=== PATIENT | female | born 1955 | race Caucasian/White ===

== ENCOUNTER 2020-07-24 10:00 | Inpatient (IN) ==
[2020-07-24 11:21] LABS: Basophils % 0.2 % (0.0-0.8); Eosinophils # 0.1 10*3/uL (0.0-0.87); Eosinophils % 1.3 % (0.00-10.9); Hematocrit 27.2 VOL% (35.7-47.0); Hemoglobin 8.6 GM/DL (12.0-16.0); Immature Granulocytes % 0.3 %; Immature Granulocytes Absolute 0.03 #; Lymphocytes # 2.8 10*3/uL (1.4-4.0); Lymphocytes % 31.9 % (21.3-54.2); Mean Corpuscular HGB Conc 31.6 GM/DL (32-36); Mean Corpuscular Volume 86.1 FL (87-102); Mean Platelet Volume 11.6 FL (9.6-12.0); Monocytes % 6.5 % (1.7-12.7); Neutrophils % 59.8 % (38.7-73.9); Platelet Count 171 T/CUMM (130-400); Red Blood Count 3.16 MC/CUMM (3.8-5.5); Red Cell Distribution Width 13.4 % (9.3-17.3); White Blood Count 8.8 T/CUMM (4-12)
[2020-07-24 11:41] LABS: Alanine Aminotransferase 30 U/L (13-56); Albumin 3.8 G/DL (3.4-5.0); Alkaline Phosphatase 63 U/L (45-117); Aspartate Amino Transferase 18 U/L (0-37); Bilirubin,Total < 0.39 MG/DL (0.2-1.0); Blood Urea Nitrogen 93 MG/DL (7-18); Calcium 8.7 MG/DL (8.5-10.1); Carbon Dioxide 20 MMOL/L (21-32); Estimated Glom Filtration Rate 7 ML/MIN; Glucose 232 MG/DL (74-106); Potassium 4.8 MMOL/L (3.5-5.1); Sodium 136 MMOL/L (136-145); Total Protein 7.4 G/DL (6.4-8.2)
[2020-07-24] MEDS ORDERED: ACETAMINOPHEN 325 MG TABLET PO PRN (11:51)
[2020-07-24] MEDS ORDERED: GLUCAGON 1 MG VIAL IM PRN (11:51)
[2020-07-24] MEDS ORDERED: ONDANSETRON 4 MG/2 ML VIAL IV PRN (11:51)
[2020-07-24] MEDS ORDERED: DEXTROSE 50% 25 GM/50 ML VIAL IV PRN (11:51)
[2020-07-24] MEDS ORDERED: VANCOMYCIN INJ 750 MG in SODIUM CHLORIDE 0.9% 250 ML IV ONE (12:00)
[2020-07-24 12:22] LABS: Alanine Aminotransferase 30 U/L (13-56); Albumin 3.8 G/DL (3.4-5.0); Alkaline Phosphatase 65 U/L (45-117); Aspartate Amino Transferase 20 U/L (0-37); Bilirubin,Indirect 0.3 MG/DL (0.0-1.0); Bilirubin,Total < 0.39 MG/DL (0.2-1.0)
[2020-07-24] MEDS ORDERED: LIDOCAINE 1%/EPI INJ 20 ML VIAL ONE (12:56)
[2020-07-24] MEDS ORDERED: HEPARIN 5,000 UNIT/1 ML VIAL ONE (12:56)
[2020-07-24] MEDS ORDERED: BUPIVACAINE MPF 0.25% 30 ML VIAL ONE (12:56)
[2020-07-24] MEDS ORDERED: SODIUM CHLORIDE 0.9% 250 ML IV SCH (13:30)
[2020-07-24] MEDS ORDERED: MIDAZOLAM 2 MG/2 ML VIAL ONE (13:31)
[2020-07-24] MEDS ORDERED: KETAMINE 500 MG/10 ML VIAL ONE (13:31)
[2020-07-24] MEDS ORDERED: fentaNYL 100 MCG/2 ML VIAL ONE (13:31)
[2020-07-24] MEDS ORDERED: CALCIUM CARBONATE CHEW 500 MG TABLET PO PRN (15:52)
[2020-07-24] MEDS ORDERED: EPOETIN ALFA-EPBX 2,000 UNIT/ML VIAL IV PRN (16:53)
[2020-07-24 17:16] LABS: Hepatitis B Core IgM Quant < 0.05 Index; Hepatitis B Surface Ag Quant < 0.10 Index; Hepatitis B Surface Ag Result Non-Reactive (NonReactive); Hepatitis C Virus Ab Quant 0.03 Index; Hepatitis C Virus Ab Result Non-Reactive (NonReactive)
[2020-07-24] MEDS: INSULIN LISPRO 100 UNIT/ML SUBCUT SCH ×2 (18:03→21:20)
[2020-07-24] MEDS: CALCIUM (CARBONATE) 500 MG TABLET PO SCH (18:04)
[2020-07-24] MEDS: SODIUM BICARBONATE 650 MG TABLET PO SCH (21:20)
[2020-07-24] MEDS: OMEGA 3 ACID ETHYL ESTERS 1 GM CAPSULE PO SCH (21:20)
[2020-07-25 05:59] LABS: Basophils % 0.1 % (0.0-0.8); Eosinophils # 0.1 10*3/uL (0.0-0.87); Eosinophils % 1.4 % (0.00-10.9); Hemoglobin 8.3 GM/DL (12.0-16.0); Immature Granulocytes % 0.3 %; Immature Granulocytes Absolute 0.03 #; Lymphocytes # 3.1 10*3/uL (1.4-4.0); Lymphocytes % 35.1 % (21.3-54.2); Mean Corpuscular HGB Conc 31.9 GM/DL (32-36); Mean Platelet Volume 11.8 FL (9.6-12.0); Monocytes % 8.1 % (1.7-12.7); Platelet Count 162 T/CUMM (130-400); Red Blood Count 2.99 MC/CUMM (3.8-5.5); Red Cell Distribution Width 13.2 % (9.3-17.3); White Blood Count 8.7 T/CUMM (4-12)
[2020-07-25 06:31] LABS: Potassium 5.1 MMOL/L (3.5-5.1); Risk Ratio 5.13; Thyroid Stimulating Hormone 0.067 uIU/ml (0.358-3.74); VLDL CHOLESTEROL 27.4 MG/DL
[2020-07-25] MEDS: NEBIVOLOL 10 MG TABLET PO SCH (08:22)
[2020-07-25] MEDS: OMEGA 3 ACID ETHYL ESTERS 1 GM CAPSULE PO SCH ×2 (08:22→21:12)
[2020-07-25] MEDS: ASPIRIN EC 81 MG TABLET PO SCH (08:22)
[2020-07-25] MEDS: SODIUM BICARBONATE 650 MG TABLET PO SCH ×2 (08:22→21:12)
[2020-07-25] MEDS: amLODIPine 10 MG TABLET PO SCH (08:23)
[2020-07-25] MEDS: ESCITALOPRAM 10 MG TABLET PO SCH (08:23)
[2020-07-25] MEDS: FENOFIBRATE 145 MG TABLET PO SCH (08:23)
[2020-07-25] MEDS: PANTOPRAZOLE 40 MG TABLET PO SCH (08:23)
[2020-07-25] MEDS: INSULIN LISPRO 100 UNIT/ML SUBCUT SCH ×4 (08:24→21:14)
[2020-07-25] MEDS: CALCIUM (CARBONATE) 500 MG TABLET PO SCH ×3 (11:15→16:56)
[2020-07-25] MEDS ORDERED: HEPARIN 10,000 UNIT/10 ML VIAL IV SCH (11:30)
[2020-07-25 13:16] LABS: Bilirubin,Urine Negative (Negative); Blood, Urine Negative (Negative); Glucose,Urine (UA) >=500 mg/dL (Negative); Ketones,Urine Negative (Negative); Mucus,Urine Occasional /LPF (Occasional); Nitrite,Urine Negative (Negative); Protein,Urine 30 MG/DL; RBC,Urine 2 /HPF (0-4); Squamous Epithelial Cell,Urine Occasional /HPF (0-10); Urine Appearance CLEAR (Clear); Urine Color Straw (Yellow); Urine Specific Gravity 1.007 (1.001-1.035); Urine Urobilinogen < 2.0 EU/DL (0.2-1.0)
[2020-07-26 05:22] LABS: Basophils % 0.3 % (0.0-0.8); Eosinophils # 0.2 10*3/uL (0.0-0.87); Eosinophils % 2.2 % (0.00-10.9); Hemoglobin 7.8 GM/DL (12.0-16.0); Immature Granulocytes % 0.3 %; Immature Granulocytes Absolute 0.02 #; Lymphocytes # 3.7 10*3/uL (1.4-4.0); Lymphocytes % 51.9 % (21.3-54.2); Mean Corpuscular HGB Conc 32.5 GM/DL (32-36); Mean Platelet Volume 11.9 FL (9.6-12.0); Neutrophils % 36.3 % (38.7-73.9); Platelet Count 135 T/CUMM (130-400); Red Blood Count 2.79 MC/CUMM (3.8-5.5); Red Cell Distribution Width 13.1 % (9.3-17.3); White Blood Count 7.2 T/CUMM (4-12)
[2020-07-26 05:47] LABS: Calcium 8.8 MG/DL (8.5-10.1); Osmolality,Calculated 296.5 MOS/KG (273-304); Potassium 4.8 MMOL/L (3.5-5.1)
[2020-07-26 05:48] LABS: Eosinophils 4 % (0-10); Lymphocytes 54 % (20-55); Platelet Estimate Normal; Segmented Neutrophils 33 % (50-85); Total Cells Counted 100
[2020-07-26 05:49] LABS: Hypochromasia 2+; Microcytosis 1+
[2020-07-26] MEDS: OMEGA 3 ACID ETHYL ESTERS 1 GM CAPSULE PO SCH ×2 (09:33→20:59)
[2020-07-26] MEDS: ESCITALOPRAM 10 MG TABLET PO SCH (09:34)
[2020-07-26] MEDS: SODIUM BICARBONATE 650 MG TABLET PO SCH ×2 (09:34→20:59)
[2020-07-26] MEDS: ASPIRIN EC 81 MG TABLET PO SCH (09:34)
[2020-07-26] MEDS: CALCIUM (CARBONATE) 500 MG TABLET PO SCH ×3 (09:34→17:32)
[2020-07-26] MEDS: amLODIPine 10 MG TABLET PO SCH (09:34)
[2020-07-26] MEDS: INSULIN LISPRO 100 UNIT/ML SUBCUT SCH ×4 (09:35→21:00)
[2020-07-26] MEDS: NEBIVOLOL 10 MG TABLET PO SCH (09:35)
[2020-07-26] MEDS: FENOFIBRATE 145 MG TABLET PO SCH (09:35)
[2020-07-26] MEDS: PANTOPRAZOLE 40 MG TABLET PO SCH (09:35)
[2020-07-27 04:34] LABS: Basophils % 0.1 % (0.0-0.8); Eosinophils # 0.2 10*3/uL (0.0-0.87); Eosinophils % 2.4 % (0.00-10.9); Hematocrit 24.2 VOL% (35.7-47.0); Hemoglobin 7.9 GM/DL (12.0-16.0); Immature Granulocytes % 0.3 %; Immature Granulocytes Absolute 0.03 #; Lymphocytes # 3.2 10*3/uL (1.4-4.0); Lymphocytes % 37.2 % (21.3-54.2); Mean Corpuscular HGB Conc 32.6 GM/DL (32-36); Mean Corpuscular Volume 84.9 FL (87-102); Mean Platelet Volume 11.9 FL (9.6-12.0); Platelet Count 125 T/CUMM (130-400); Red Blood Count 2.85 MC/CUMM (3.8-5.5); White Blood Count 8.6 T/CUMM (4-12)
[2020-07-27 04:51] LABS: Calcium 8.1 MG/DL (8.5-10.1); Osmolality,Calculated 286.4 MOS/KG (273-304); Potassium 4.1 MMOL/L (3.5-5.1)
[2020-07-27] MEDS: FENOFIBRATE 145 MG TABLET PO SCH (10:07)
[2020-07-27] MEDS: SODIUM BICARBONATE 650 MG TABLET PO SCH ×2 (10:07→20:21)
[2020-07-27] MEDS: INSULIN LISPRO 100 UNIT/ML SUBCUT SCH ×4 (10:07→20:20)
[2020-07-27] MEDS: PANTOPRAZOLE 40 MG TABLET PO SCH (10:07)
[2020-07-27] MEDS: NEBIVOLOL 10 MG TABLET PO SCH (10:07)
[2020-07-27] MEDS: ESCITALOPRAM 10 MG TABLET PO SCH (10:07)
[2020-07-27] MEDS: ASPIRIN EC 81 MG TABLET PO SCH (10:07)
[2020-07-27] MEDS: OMEGA 3 ACID ETHYL ESTERS 1 GM CAPSULE PO SCH ×2 (10:07→20:21)
[2020-07-27] MEDS: CALCIUM (CARBONATE) 500 MG TABLET PO SCH ×3 (10:07→16:41)
[2020-07-27] MEDS: amLODIPine 10 MG TABLET PO SCH (11:36)
[2020-07-28 06:05] LABS: Basophils % 0.3 % (0.0-0.8); Eosinophils # 0.2 10*3/uL (0.0-0.87); Eosinophils % 3.1 % (0.00-10.9); Hematocrit 23.9 VOL% (35.7-47.0); Hemoglobin 7.7 GM/DL (12.0-16.0); Immature Granulocytes % 0.5 %; Immature Granulocytes Absolute 0.03 #; Lymphocytes % 47.3 % (21.3-54.2); Mean Corpuscular HGB Conc 32.2 GM/DL (32-36); Mean Corpuscular Volume 85.4 FL (87-102); Mean Platelet Volume 12.1 FL (9.6-12.0); Monocytes % 10.6 % (1.7-12.7); Neutrophils % 38.2 % (38.7-73.9); Platelet Count 126 T/CUMM (130-400); White Blood Count 6.4 T/CUMM (4-12)
[2020-07-28 06:25] LABS: Osmolality,Calculated 284.5 MOS/KG (273-304); Potassium 3.5 MMOL/L (3.5-5.1)
[2020-07-28 07:15] LABS: Hypochromasia Slight; Lymphocytes 43 % (20-55); Microcytosis Slight; Ovalocytes Few; Platelet Estimate Adequate; Reactive Lymphocytes Few; Segmented Neutrophils 51 % (50-85); Total Cells Counted 100
[2020-07-28] MEDS ORDERED: SODIUM CHLORIDE 0.9% 1,000 ML IV PRN (08:28)
[2020-07-28] MEDS: SODIUM BICARBONATE 650 MG TABLET PO SCH ×2 (09:30→20:13)
[2020-07-28] MEDS: NEBIVOLOL 10 MG TABLET PO SCH (09:30)
[2020-07-28] MEDS: PANTOPRAZOLE 40 MG TABLET PO SCH (09:30)
[2020-07-28] MEDS: ASPIRIN EC 81 MG TABLET PO SCH (09:30)
[2020-07-28] MEDS: INSULIN LISPRO 100 UNIT/ML SUBCUT SCH ×4 (09:30→20:13)
[2020-07-28] MEDS: ESCITALOPRAM 10 MG TABLET PO SCH (09:30)
[2020-07-28] MEDS: OMEGA 3 ACID ETHYL ESTERS 1 GM CAPSULE PO SCH ×2 (09:30→20:13)
[2020-07-28] MEDS: amLODIPine 10 MG TABLET PO SCH (09:30)
[2020-07-28] MEDS: CALCIUM (CARBONATE) 500 MG TABLET PO SCH ×3 (09:30→17:09)
[2020-07-28] MEDS: FENOFIBRATE 145 MG TABLET PO SCH (09:30)
[2020-07-29 05:28] LABS: Basophils % 0.1 % (0.0-0.8); Eosinophils # 0.2 10*3/uL (0.0-0.87); Eosinophils % 2.5 % (0.00-10.9); Hematocrit 23.7 VOL% (35.7-47.0); Hemoglobin 7.4 GM/DL (12.0-16.0); Immature Granulocytes % 0.4 %; Immature Granulocytes Absolute 0.03 #; Lymphocytes # 3.7 10*3/uL (1.4-4.0); Lymphocytes % 51.7 % (21.3-54.2); Mean Corpuscular HGB Conc 31.2 GM/DL (32-36); Mean Corpuscular Volume 88.1 FL (87-102); Mean Platelet Volume 11.9 FL (9.6-12.0); Monocytes % 8.2 % (1.7-12.7); Neutrophils % 37.1 % (38.7-73.9); Platelet Count 140 T/CUMM (130-400); Red Blood Count 2.69 MC/CUMM (3.8-5.5); Red Cell Distribution Width 13.1 % (9.3-17.3); White Blood Count 7.2 T/CUMM (4-12)
[2020-07-29 05:50] LABS: Calcium 8.4 MG/DL (8.5-10.1); Osmolality,Calculated 293.4 MOS/KG (273-304); Potassium 4.1 MMOL/L (3.5-5.1)
[2020-07-29 05:58] LABS: Eosinophils 1 % (0-10); Hypochromasia 1+; Lymphocytes 49 % (20-55); Microcytosis 1+; Platelet Estimate Adequate; Segmented Neutrophils 45 % (50-85); Total Cells Counted 100
[2020-07-29 05:59] LABS: Atypical Lymphocytes Few
[2020-07-29] MEDS: INSULIN LISPRO 100 UNIT/ML SUBCUT SCH ×4 (08:29→21:21)
[2020-07-29] MEDS: ASPIRIN EC 81 MG TABLET PO SCH (08:29)
[2020-07-29] MEDS: ESCITALOPRAM 10 MG TABLET PO SCH (08:30)
[2020-07-29] MEDS: SODIUM BICARBONATE 650 MG TABLET PO SCH (08:30)
[2020-07-29] MEDS: FENOFIBRATE 145 MG TABLET PO SCH (08:30)
[2020-07-29] MEDS: OMEGA 3 ACID ETHYL ESTERS 1 GM CAPSULE PO SCH ×2 (08:30→21:20)
[2020-07-29] MEDS: NEBIVOLOL 10 MG TABLET PO SCH (08:30)
[2020-07-29] MEDS: amLODIPine 10 MG TABLET PO SCH (08:30)
[2020-07-29] MEDS: CALCIUM (CARBONATE) 500 MG TABLET PO SCH ×3 (08:31→17:00)
[2020-07-29] MEDS: PANTOPRAZOLE 40 MG TABLET PO SCH (08:31)
[2020-07-29] MEDS ORDERED: SODIUM CHLORIDE 0.9% 1,000 ML IV PRN (11:07)
[2020-07-29] MEDS: INSULIN ASPART PROTAMINE/ASPART 70/30 100 UNIT/ML SUBCUT SCH (14:12)
[2020-07-29 19:29] LABS: Hematocrit 32.7 VOL% (35.7-47.0)
[2020-07-29 19:40] LABS: Hemoglobin 10.8 GM/DL (12.0-16.0)
[2020-07-30 05:53] LABS: Basophils % 0.1 % (0.0-0.8); Eosinophils # 0.2 10*3/uL (0.0-0.87); Eosinophils % 2.2 % (0.00-10.9); Hematocrit 33.2 VOL% (35.7-47.0); Hemoglobin 11.2 GM/DL (12.0-16.0); Immature Granulocytes % 0.4 %; Immature Granulocytes Absolute 0.03 #; Lymphocytes # 3.2 10*3/uL (1.4-4.0); Lymphocytes % 37.8 % (21.3-54.2); Mean Corpuscular HGB Conc 33.7 GM/DL (32-36); Mean Corpuscular Volume 86.2 FL (87-102); Monocytes % 8.7 % (1.7-12.7); Neutrophils % 50.8 % (38.7-73.9); Platelet Count 132 T/CUMM (130-400); Red Blood Count 3.85 MC/CUMM (3.8-5.5); Red Cell Distribution Width 13.2 % (9.3-17.3); White Blood Count 8.6 T/CUMM (4-12)
[2020-07-30 06:03] LABS: Calcium 8.7 MG/DL (8.5-10.1); Osmolality,Calculated 296.7 MOS/KG (273-304); Potassium 4.4 MMOL/L (3.5-5.1)
[2020-07-30 07:51] VITALS: BP 154/54
[2020-07-30] MEDS: INSULIN LISPRO 100 UNIT/ML SUBCUT SCH ×2 (08:27→13:30)
[2020-07-30] MEDS: PANTOPRAZOLE 40 MG TABLET PO SCH (09:49)
[2020-07-30] MEDS: CALCIUM (CARBONATE) 500 MG TABLET PO SCH ×2 (09:49→13:30)
[2020-07-30] MEDS: ASPIRIN EC 81 MG TABLET PO SCH (09:49)
[2020-07-30] MEDS: OMEGA 3 ACID ETHYL ESTERS 1 GM CAPSULE PO SCH (09:49)
[2020-07-30] MEDS: FENOFIBRATE 145 MG TABLET PO SCH (09:50)
[2020-07-30] MEDS: ESCITALOPRAM 10 MG TABLET PO SCH (13:29)
[2020-07-30] MEDS: NEBIVOLOL 10 MG TABLET PO SCH (13:29)
[2020-07-30] MEDS: amLODIPine 10 MG TABLET PO SCH (13:30)
[2020-07-30] MEDS: INSULIN ASPART PROTAMINE/ASPART 70/30 100 UNIT/ML SUBCUT SCH (13:30)
== END 2020-07-30 13:47 | disposition home or self-care (01) | DRG 673 ==
LOC: N.ED 10:00 → N.EDINP 11:51 → SUATTDRO 11:51 → N.EDINP 13:11 → N.5E 15:10
PROVIDERS: ADMIT Internal Medicine; ATTEND Internal Medicine

== ENCOUNTER 2020-12-24 07:24 | Inpatient (IN) ==
[2020-12-19 11:46] LABS: Basophils % 0.4 % (0.0-0.8); Eosinophils # 0.2 10*3/uL (0.0-0.87); Eosinophils % 4.5 % (0.00-10.9); Hematocrit 34.2 VOL% (35.7-47.0); Hemoglobin 10.8 GM/DL (12.0-16.0); Immature Granulocytes % 0.2 %; Immature Granulocytes Absolute 0.01 #; Lymphocytes % 39.7 % (21.3-54.2); Mean Corpuscular HGB Conc 31.6 GM/DL (32-36); Mean Corpuscular Volume 101.2 FL (87-102); Mean Platelet Volume 12.3 FL (9.6-12.0); Monocytes % 7.4 % (1.7-12.7); Neutrophils % 47.8 % (38.7-73.9); Platelet Count 162 T/CUMM (130-400); Red Blood Count 3.38 MC/CUMM (3.8-5.5); White Blood Count 5.1 T/CUMM (4-12)
[2020-12-19 12:04] LABS: Albumin 3.8 G/DL (3.4-5.0); Bilirubin,Total 0.7 MG/DL (0.20-1.00); Calcium 9.3 MG/DL (8.5-10.1); Osmolality,Calculated 293.7 MOS/KG (273-304); Potassium 3.9 MMOL/L (3.5-5.1); Total Protein 6.8 G/DL (6.4-8.2)
[~2020-12-24 07:24] MED LIST: ACETAMINOPHEN 500 MG TABLET PO ONE; FAMOTIDINE 20 MG TABLET PO ONE; VANCOMYCIN INJ 500 MG in SODIUM CHLORIDE 0.9% 100 ML IV ONE
[2020-12-24] MEDS ORDERED: PHENYLEPHRINE DRIP 20 MG/250 ML PREMIX IV ONE ×2 (08:43→10:22)
[2020-12-24] MEDS ORDERED: HEPARIN/NACL 0.9% 2 UNITS/ML 1,000 UNIT/500 ML BAG IV ONE ×2 (08:43→10:22)
[2020-12-24] MEDS ORDERED: LACTATED RINGERS 1,000 ML IV ONE (08:43)
[2020-12-24] MEDS ORDERED: NITROGLYCERIN DRIP 50 MG/250 ML BOTTLE IV ONE ×2 (08:43→10:22)
[2020-12-24] MEDS ORDERED: LACTATED RINGERS 1,000 ML IV SCH (09:30)
[2020-12-24 09:52] LABS: Hematocrit 33.6 VOL% (35.7-47.0); Hemoglobin 10.8 GM/DL (12.0-16.0)
[2020-12-24] MEDS ORDERED: ROPIVACAINE 0.5% 30 ML VIAL ONE (09:58)
[2020-12-24] MEDS ORDERED: LIDOCAINE 1% 5 ML VIAL ONE (09:58)
[2020-12-24] MEDS ORDERED: SODIUM CHLORIDE 0.9% 250 ML IV SCH (10:00)
[2020-12-24] MEDS ORDERED: HEPARIN 5,000 UNIT/1 ML VIAL ONE (10:05)
[2020-12-24] MEDS ORDERED: fentaNYL 100 MCG/2 ML VIAL ONE (10:14)
[2020-12-24] MEDS ORDERED: propofoL 200 MG/20 ML VIAL IV ONE (10:18)
[2020-12-24] MEDS ORDERED: LIDOCAINE 2% 5 ML VIAL ONE (10:18)
[2020-12-24] MEDS ORDERED: ROCURONIUM 50 MG/5 ML VIAL IV ONE (10:18)
[2020-12-24] MEDS ORDERED: SEVOFLURANE 1 UNIT/15 MINUTE INH ONE ×6 (10:18→12:35)
[2020-12-24] MEDS ORDERED: ETOMIDATE 40 MG/20 ML VIAL IV ONE (10:18)
[2020-12-24] MEDS ORDERED: DEXAMETHASONE 4 MG/1 ML VIAL ONE (10:18)
[2020-12-24] MEDS ORDERED: ONDANSETRON 4 MG/2 ML VIAL ONE (10:18)
[2020-12-24] MEDS ORDERED: PHENYLEPHRINE 1 MG/10 ML SYRINGE IV ONE (10:26)
[2020-12-24] MEDS ORDERED: SODIUM CHLORIDE 0.9% 750 ML IV ONE (11:17)
[2020-12-24] MEDS ORDERED: PROTAMINE SULFATE 50 MG/5 ML VIAL IV ONE (11:59)
[2020-12-24] MEDS ORDERED: GLYCOPYRROLATE 0.4 MG/2 ML VIAL ONE (12:02)
[2020-12-24] MEDS ORDERED: NEOSTIGMINE 10 MG/10 ML VIAL ONE (12:02)
[2020-12-24] MEDS ORDERED: PROMETHAZINE 25 MG/1 ML VIAL IM PRN (12:22)
[2020-12-24] MEDS ORDERED: ONDANSETRON 4 MG/2 ML VIAL IV PRN ×2 (12:22→13:30)
[2020-12-24] MEDS ORDERED: DEXTROSE 50% 25 GM/50 ML VIAL IV PRN (12:22)
[2020-12-24] MEDS ORDERED: GLUCAGON 1 MG VIAL IM PRN (12:22)
[2020-12-24] MEDS ORDERED: oxyCODONE/ACETAMINOPHEN 5-325 MG TABLET PO PRN ×2 (12:22)
[2020-12-24] MEDS ORDERED: HYDROmorphone 2 MG/1 ML VIAL IV PRN ×2 (12:22)
[2020-12-24] MEDS ORDERED: NALOXONE 0.4 MG/ML VIAL IV PRN (12:22)
[2020-12-24] MEDS ORDERED: PHENYLEPHRINE DRIP 40 MG/250 ML PREMIX IV SCH (12:30)
[2020-12-24] MEDS ORDERED: NITROPRUSSIDE 100 MG in DEXTROSE 5% 250 ML IV SCH (12:30)
[2020-12-24] MEDS ORDERED: PROMETHAZINE INJ 12.5 MG in SODIUM CHLORIDE 0.9% 50 ML IV PRN (13:58)
[2020-12-24] MEDS: LACTATED RINGERS 1,000 ML IV SCH (14:29)
[2020-12-24] MEDS: INSULIN REGULAR 100 UNIT/ML SUBCUT SCH ×2 (16:24→21:28)
[2020-12-24] MEDS ORDERED: NON-FORMULARY MEDICATION (Aspirin 81 mg Tablet) PO SCH (21:00)
[2020-12-24] MEDS: FAMOTIDINE 20 MG TABLET PO SCH (21:27)
[2020-12-24] MEDS: FERROUS SULFATE 325 MG TABLET PO SCH (21:28)
[2020-12-25] MEDS: LACTATED RINGERS 1,000 ML IV SCH (00:51)
[2020-12-25 06:08] VITALS: BP 147/48
[2020-12-25] MEDS: INSULIN REGULAR 100 UNIT/ML SUBCUT SCH ×4 (08:00→21:26)
[2020-12-25 08:49] LABS: Basophils % 0.4 % (0.0-0.8); Eosinophils % 0.4 % (0.00-10.9); Hematocrit 33.4 VOL% (35.7-47.0); Hemoglobin 10.3 GM/DL (12.0-16.0); Immature Granulocytes % 0.5 %; Immature Granulocytes Absolute 0.04 #; Lymphocytes % 23.6 % (21.3-54.2); Mean Corpuscular HGB Conc 30.8 GM/DL (32-36); Mean Corpuscular Volume 102.5 FL (87-102); Mean Platelet Volume 12.2 FL (9.6-12.0); Monocytes % 4.6 % (1.7-12.7); Neutrophils % 70.5 % (38.7-73.9); Platelet Count 193 T/CUMM (130-400); Red Blood Count 3.26 MC/CUMM (3.8-5.5); Red Cell Distribution Width 14.5 % (9.3-17.3); White Blood Count 8.6 T/CUMM (4-12)
[2020-12-25] MEDS: CLOPIDOGREL 75 MG TABLET PO SCH (09:22)
[2020-12-25] MEDS: ASPIRIN EC 81 MG TABLET PO SCH (09:22)
[2020-12-25] MEDS: FAMOTIDINE 20 MG TABLET PO SCH ×2 (09:22→21:25)
[2020-12-25] MEDS ORDERED: HEPARIN 10,000 UNIT/10 ML VIAL IV SCH (10:45)
[2020-12-25 11:58] LABS: Calcium 8.6 MG/DL (8.5-10.1); Osmolality,Calculated 297.7 MOS/KG (273-304); Potassium 4.2 MMOL/L (3.5-5.1)
[2020-12-25] MEDS: amLODIPine 10 MG TABLET PO SCH (15:42)
[2020-12-25] MEDS: hydroCHLOROthiazide 25 MG TABLET PO SCH (15:43)
[2020-12-25] MEDS: NEBIVOLOL 10 MG TABLET PO SCH (15:43)
[2020-12-25] MEDS: FENOFIBRATE 145 MG TABLET PO SCH (15:43)
[2020-12-25] MEDS ORDERED: INSULIN ASPART PROTAMINE/ASPART 70/30 100 UNIT/ML SUBCUT SCH (21:00)
[2020-12-25] MEDS: FERROUS SULFATE 325 MG TABLET PO SCH (21:26)
[2020-12-26] MEDS: INSULIN REGULAR 100 UNIT/ML SUBCUT SCH (07:42)
[2020-12-26] MEDS: NEBIVOLOL 10 MG TABLET PO SCH (08:16)
[2020-12-26] MEDS: FENOFIBRATE 145 MG TABLET PO SCH (08:16)
[2020-12-26] MEDS: hydroCHLOROthiazide 25 MG TABLET PO SCH (08:17)
[2020-12-26] MEDS: CLOPIDOGREL 75 MG TABLET PO SCH (08:17)
[2020-12-26] MEDS: FAMOTIDINE 20 MG TABLET PO SCH (08:17)
[2020-12-26] MEDS: ASPIRIN EC 81 MG TABLET PO SCH (08:17)
[2020-12-26] MEDS: amLODIPine 10 MG TABLET PO SCH (08:17)
== END 2020-12-26 12:25 | disposition home or self-care (01) | DRG 37 ==
LOC: N.OR 07:24 → N.SDSINP 09:13 → N.ICU 13:13 → EDSTATUS 15:15
PROVIDERS: ADMIT Surgery; ATTEND Surgery

== ENCOUNTER 2021-06-01 15:41 | Inpatient (IN) ==
[2021-06-01 19:08] LABS: Basophils % 0.4 % (0.0-0.8); Eosinophils # 0.1 10*3/uL (0.0-0.87); Eosinophils % 0.7 % (0.00-10.9); Hematocrit 31.9 VOL% (35.7-47.0); Hemoglobin 10.3 GM/DL (12.0-16.0); Immature Granulocytes % 0.7 %; Immature Granulocytes Absolute 0.07 #; Lymphocytes % 18.9 % (21.3-54.2); Mean Corpuscular HGB Conc 32.3 GM/DL (32-36); Mean Corpuscular Volume 97.6 FL (87-102); Mean Platelet Volume 11.7 FL (9.6-12.0); Monocytes # 0.7 10*3/uL (0.11-0.8); Monocytes % 6.1 % (1.7-12.7); Neutrophils % 73.2 % (38.7-73.9); Platelet Count 193 T/CUMM (130-400); Red Blood Count 3.27 MC/CUMM (3.8-5.5); White Blood Count 10.6 T/CUMM (4-12)
[2021-06-01] MEDS ORDERED: DOCUSATE SODIUM 100 MG CAPSULE PO PRN (19:16)
[2021-06-01] MEDS ORDERED: ACETAMINOPHEN 325 MG TABLET PO PRN (19:16)
[2021-06-01] MEDS ORDERED: GLUCAGON 1 MG VIAL IM PRN (19:16)
[2021-06-01] MEDS ORDERED: ONDANSETRON 4 MG/2 ML VIAL IV PRN (19:16)
[2021-06-01] MEDS ORDERED: DEXTROSE 10% 250 ML BAG IV PRN (19:26)
[2021-06-01 19:33] LABS: Albumin 3.5 G/DL (3.4-5.0); Bilirubin,Total 0.5 MG/DL (0.20-1.00); Calcium 8.8 MG/DL (8.5-10.1); Osmolality,Calculated 290.3 MOS/KG (273-304); Total Protein 6.3 G/DL (6.4-8.2)
[2021-06-01] MEDS: INSULIN REGULAR 100 UNIT/ML SUBCUT SCH (22:23)
[2021-06-01] MEDS: FERROUS SULFATE 325 MG TABLET PO SCH (22:24)
[2021-06-01 22:32] LABS: Thyroid Stimulating Hormone 0.153 uIU/ml (0.358-3.74)
[2021-06-01 23:08] LABS: Glucose,Urine (UA) 100 mg/dL (Negative); Hyaline Casts,Urine 3 /LPF (0-3); Mucus,Urine Occasional /LPF (Occasional); Protein,Urine >=300 mg/dL (Negative); Squamous Epithelial Cell,Urine Few /HPF (0-10); Urine Appearance Slightly Cloudy (Clear); Urine Color Yellow (Yellow); Urine pH 6.5 (4.5-8.0)
[2021-06-01 23:09] LABS: Bilirubin,Urine Negative (Negative); Blood, Urine Trace mg/dL (Negative); Ketones,Urine 15 mg/dL (Negative); Nitrite,Urine Negative (Negative); RBC,Urine 2 /HPF (0-4); Urine Urobilinogen 0.2 eU/dL (<2.0)
[2021-06-02 05:06] LABS: Basophils % 0.1 % (0.0-0.8); Eosinophils # 0.1 10*3/uL (0.0-0.87); Eosinophils % 1.6 % (0.00-10.9); Hemoglobin 9.6 GM/DL (12.0-16.0); Immature Granulocytes % 0.6 %; Immature Granulocytes Absolute 0.05 #; Lymphocytes # 1.9 10*3/uL (1.4-4.0); Lymphocytes % 23.3 % (21.3-54.2); Mean Corpuscular Volume 98.4 FL (87-102); Mean Platelet Volume 12.1 FL (9.6-12.0); Monocytes # 0.6 10*3/uL (0.11-0.8); Monocytes % 7.2 % (1.7-12.7); Neutrophils % 67.2 % (38.7-73.9); Platelet Count 161 T/CUMM (130-400); Red Blood Count 3.05 MC/CUMM (3.8-5.5); Red Cell Distribution Width 13.9 % (9.3-17.3); White Blood Count 8.1 T/CUMM (4-12)
[2021-06-02 05:40] LABS: Bilirubin,Total 0.5 MG/DL (0.20-1.00); Calcium 8.3 MG/DL (8.5-10.1); Osmolality,Calculated 291.4 MOS/KG (273-304); Potassium 2.9 MMOL/L (3.5-5.1); Risk Ratio 2.3; Total Protein 5.9 G/DL (6.4-8.2); VLDL Cholesterol 21.2 MG/DL
[2021-06-02] MEDS: INSULIN REGULAR 100 UNIT/ML SUBCUT SCH ×5 (08:18→21:56)
[2021-06-02] MEDS: PANTOPRAZOLE 40 MG TABLET PO SCH (09:44)
[2021-06-02 10:05] LABS: Thyroid Stimulating Hormone 0.124 uIU/ml (0.358-3.74)
[2021-06-02] MEDS ORDERED: POTASSIUM CHLORIDE 20 MEQ TABLET PO ONE (11:50)
[2021-06-02] MEDS ORDERED: HEPARIN 10,000 UNIT/10 ML VIAL IV PRN (14:38)
[2021-06-02] MEDS: cefTRIAXone 1,000 MG in SODIUM CHLORIDE 0.9% 100 ML IV SCH (18:02)
[2021-06-02] MEDS: FERROUS SULFATE 325 MG TABLET PO SCH (20:43)
[2021-06-02] MEDS: SIMVASTATIN 10 MG TABLET PO SCH (20:43)
[2021-06-02] MEDS: methIMAzole 5 MG TABLET PO SCH (20:43)
[2021-06-03 04:32] LABS: Basophils % 0.4 % (0.0-0.8); Eosinophils # 0.2 10*3/uL (0.0-0.87); Eosinophils % 2.4 % (0.00-10.9); Hematocrit 29.5 VOL% (35.7-47.0); Hemoglobin 9.4 GM/DL (12.0-16.0); Immature Granulocytes % 0.5 %; Immature Granulocytes Absolute 0.04 #; Lymphocytes # 1.9 10*3/uL (1.4-4.0); Lymphocytes % 25.1 % (21.3-54.2); Mean Corpuscular HGB Conc 31.9 GM/DL (32-36); Mean Corpuscular Volume 98.7 FL (87-102); Monocytes # 0.7 10*3/uL (0.11-0.8); Monocytes % 9.3 % (1.7-12.7); Neutrophils % 62.3 % (38.7-73.9); Platelet Count 161 T/CUMM (130-400); Red Blood Count 2.99 MC/CUMM (3.8-5.5); Red Cell Distribution Width 13.9 % (9.3-17.3); White Blood Count 7.5 T/CUMM (4-12)
[2021-06-03 04:55] LABS: Calcium 8.8 MG/DL (8.5-10.1); Osmolality,Calculated 282.5 MOS/KG (273-304); Potassium 3.7 MMOL/L (3.5-5.1)
[2021-06-03] MEDS ORDERED: DEXAMETHASONE 20 MG/5 ML VIAL ONE (11:47)
[2021-06-03] MEDS ORDERED: LIDOCAINE 2% 5 ML VIAL ONE (11:47)
[2021-06-03] MEDS ORDERED: fentaNYL 100 MCG/2 ML VIAL ONE (11:47)
[2021-06-03] MEDS ORDERED: SEVOFLURANE 1 UNIT/15 MINUTE INH ONE ×2 (11:47→11:52)
[2021-06-03] MEDS ORDERED: ONDANSETRON 4 MG/2 ML VIAL ONE (11:47)
[2021-06-03] MEDS ORDERED: MIDAZOLAM 2 MG/2 ML VIAL ONE (11:47)
[2021-06-03] MEDS ORDERED: propofoL 200 MG/20 ML VIAL IV ONE ×3 (11:47→11:52)
[2021-06-03] MEDS ORDERED: ACETAMINOPHEN INJ 1,000 MG/100 ML VIAL IV ONE (11:50)
[2021-06-03] MEDS ORDERED: SCOPOLAMINE 1.5 MG PATCH TRANSDERM ONE (12:44)
[2021-06-03] MEDS ORDERED: SODIUM CHLORIDE 0.9% 250 ML IV SCH (13:00)
[2021-06-03] MEDS ORDERED: ePHEDrine 50 MG/ML VIAL ONE (13:09)
[2021-06-03] MEDS: INSULIN REGULAR 100 UNIT/ML SUBCUT SCH ×4 (14:03→21:12)
[2021-06-03] MEDS: methIMAzole 5 MG TABLET PO SCH ×2 (14:04→21:12)
[2021-06-03] MEDS: PANTOPRAZOLE 40 MG TABLET PO SCH (14:42)
[2021-06-03] MEDS: NEBIVOLOL 10 MG TABLET PO SCH (14:42)
[2021-06-03] MEDS: cefTRIAXone 1,000 MG in SODIUM CHLORIDE 0.9% 100 ML IV SCH ×2 (17:30→18:22)
[2021-06-03] MEDS: FERROUS SULFATE 325 MG TABLET PO SCH (21:12)
[2021-06-03] MEDS: SIMVASTATIN 10 MG TABLET PO SCH (21:12)
[2021-06-03] MEDS ORDERED: ZALEPLON 5 MG CAPSULE PO PRN (23:45)
[2021-06-04 04:42] LABS: Basophils % 0.1 % (0.0-0.8); Hematocrit 30.1 VOL% (35.7-47.0); Hemoglobin 9.9 GM/DL (12.0-16.0); Immature Granulocytes % 0.6 %; Immature Granulocytes Absolute 0.04 #; Lymphocytes # 1.4 10*3/uL (1.4-4.0); Lymphocytes % 19.2 % (21.3-54.2); Mean Corpuscular HGB Conc 32.9 GM/DL (32-36); Mean Corpuscular Volume 97.4 FL (87-102); Mean Platelet Volume 11.6 FL (9.6-12.0); Monocytes # 0.5 10*3/uL (0.11-0.8); Monocytes % 6.6 % (1.7-12.7); Neutrophils % 73.5 % (38.7-73.9); Platelet Count 196 T/CUMM (130-400); Red Blood Count 3.09 MC/CUMM (3.8-5.5); Red Cell Distribution Width 13.6 % (9.3-17.3); White Blood Count 7.2 T/CUMM (4-12)
[2021-06-04 05:05] LABS: Calcium 8.3 MG/DL (8.5-10.1); Osmolality,Calculated 285.8 MOS/KG (273-304); Potassium 3.9 MMOL/L (3.5-5.1)
[2021-06-04] MEDS: methIMAzole 5 MG TABLET PO SCH ×2 (09:06→20:50)
[2021-06-04] MEDS: NEBIVOLOL 10 MG TABLET PO SCH (09:06)
[2021-06-04] MEDS: PANTOPRAZOLE 40 MG TABLET PO SCH (09:06)
[2021-06-04] MEDS: ASPIRIN EC 81 MG TABLET PO SCH (09:06)
[2021-06-04] MEDS: INSULIN REGULAR 100 UNIT/ML SUBCUT SCH ×4 (09:07→20:16)
[2021-06-04] MEDS: cefTRIAXone 1,000 MG in SODIUM CHLORIDE 0.9% 100 ML IV SCH (17:47)
[2021-06-04] MEDS: SIMVASTATIN 10 MG TABLET PO SCH (20:50)
[2021-06-04] MEDS: FERROUS SULFATE 325 MG TABLET PO SCH (20:50)
[2021-06-05 05:08] LABS: Basophils % 0.3 % (0.0-0.8); Eosinophils # 0.2 10*3/uL (0.0-0.87); Hemoglobin 10.2 GM/DL (12.0-16.0); Immature Granulocytes % 0.7 %; Immature Granulocytes Absolute 0.08 #; Lymphocytes # 1.7 10*3/uL (1.4-4.0); Lymphocytes % 15.3 % (21.3-54.2); Mean Corpuscular HGB Conc 31.9 GM/DL (32-36); Mean Corpuscular Volume 98.8 FL (87-102); Mean Platelet Volume 11.5 FL (9.6-12.0); Monocytes # 0.7 10*3/uL (0.11-0.8); Monocytes % 6.5 % (1.7-12.7); Neutrophils % 75.2 % (38.7-73.9); Platelet Count 185 T/CUMM (130-400); Red Blood Count 3.24 MC/CUMM (3.8-5.5); Red Cell Distribution Width 13.8 % (9.3-17.3); White Blood Count 10.8 T/CUMM (4-12)
[2021-06-05 05:37] LABS: Osmolality,Calculated 287.7 MOS/KG (273-304); Potassium 3.8 MMOL/L (3.5-5.1)
[2021-06-05] MEDS: INSULIN REGULAR 100 UNIT/ML SUBCUT SCH ×2 (10:53→15:18)
[2021-06-05] MEDS: NEBIVOLOL 10 MG TABLET PO SCH (13:02)
[2021-06-05] MEDS: ASPIRIN EC 81 MG TABLET PO SCH (13:02)
[2021-06-05] MEDS: PANTOPRAZOLE 40 MG TABLET PO SCH (13:02)
[2021-06-05] MEDS: methIMAzole 5 MG TABLET PO SCH (13:02)
[2021-06-05 15:10] VITALS: BP 129/58
== END 2021-06-05 15:03 | disposition home health service (06) | DRG 987 ==
LOC: EDUNIT# → EDBD → N.ED 15:41 → INTOOBSV 19:15 → N.EDINP 19:15 → N.TELEN 22:42
PROVIDERS: ADMIT Internal Medicine; ATTEND Internal Medicine

== ENCOUNTER 2021-08-11 18:37 | Inpatient (IN) ==
[2021-08-11] MEDS ORDERED: SODIUM CHLORIDE 0.9% 500 ML IV STA (18:58)
[2021-08-11 19:17] LABS: Basophils % 0.3 % (0.0-0.8); Eosinophils # 0.1 10*3/uL (0.0-0.87); Eosinophils % 0.9 % (0.00-10.9); Hematocrit 29.1 VOL% (35.7-47.0); Hemoglobin 9.4 GM/DL (12.0-16.0); Immature Granulocytes % 0.6 %; Immature Granulocytes Absolute 0.09 #; Lymphocytes # 1.7 10*3/uL (1.4-4.0); Lymphocytes % 11.9 % (21.3-54.2); Mean Corpuscular HGB Conc 32.3 GM/DL (32-36); Mean Corpuscular Volume 91.2 FL (87-102); Mean Platelet Volume 11.6 FL (9.6-12.0); Monocytes # 0.8 10*3/uL (0.11-0.8); Monocytes % 5.3 % (1.7-12.7); Platelet Count 159 T/CUMM (130-400); Red Blood Count 3.19 MC/CUMM (3.8-5.5); Red Cell Distribution Width 13.6 % (9.3-17.3); White Blood Count 14.1 T/CUMM (4-12)
[2021-08-11 19:37] LABS: Albumin 2.8 G/DL (3.4-5.0); Bilirubin,Total 0.7 MG/DL (0.20-1.00); Calcium 9.2 MG/DL (8.5-10.1); Osmolality,Calculated 282.4 MOS/KG (273-304); Total Protein 6.6 G/DL (6.4-8.2)
[2021-08-11] MEDS ORDERED: SODIUM CHLORIDE 0.9% 250 ML IV STA (19:39)
[2021-08-11] MEDS ORDERED: fentaNYL 100 MCG/2 ML VIAL IV STA (20:11)
[2021-08-11] MEDS ORDERED: ONDANSETRON 4 MG/2 ML VIAL IV ONE (20:11)
[2021-08-11] MEDS ORDERED: POTASSIUM CHLORIDE 20 MEQ TABLET PO STA (20:39)
[2021-08-11] MEDS ORDERED: cefTRIAXone 1,000 MG in SODIUM CHLORIDE 0.9% 100 ML IV STA (20:40)
[2021-08-11] MEDS ORDERED: FUROSEMIDE 100 MG/10 ML VIAL IV STA (21:16)
[2021-08-11] MEDS ORDERED: FUROSEMIDE 40 MG/4 ML VIAL IV STA (21:17)
[2021-08-11 21:43] LABS: Arterial Base Excess iSTAT 4 MMOL/L (-2.5-2.5); Arterial Bicarbonate iSTAT 28.8 MMOL/L (20-26); Arterial O2 Saturation iSTAT 95 % (95-100); Arterial PCO2 iSTAT 46 MM HG (35-48); Arterial PO2 iSTAT 74 MM HG (80-95); Arterial Total CO2 iSTAT 30 MMO/L (23-27); Arterial pH iSTAT 7.405 (7.35-7.45)
[2021-08-11] MEDS ORDERED: GLUCAGON 1 MG VIAL IM PRN (21:45)
[2021-08-11] MEDS ORDERED: hydrALAZINE 20 MG/1 ML VIAL IV PRN (21:45)
[2021-08-11] MEDS ORDERED: ACETAMINOPHEN 325 MG TABLET PO PRN (21:45)
[2021-08-11] MEDS ORDERED: DEXTROSE 10% 250 ML BAG IV PRN (22:10)
[2021-08-11 23:41] LABS: Bacteria,Urine Occasional /HPF (Few); RBC,Urine 2 /HPF (0-4); Squamous Epithelial Cell,Urine Few /HPF (0-10)
[2021-08-11 23:44] LABS: Urine Appearance Clear (Clear); Urine Color Yellow (Yellow)
[2021-08-11 23:45] LABS: Bilirubin,Urine Negative (Negative); Blood, Urine Small mg/dL (Negative); Glucose,Urine (UA) 500 mg/dL (Negative); Ketones,Urine Negative (Negative); Nitrite,Urine Negative (Negative); Protein,Urine >=300 mg/dL (Negative); Urine Urobilinogen 0.2 eU/dL (<2.0)
[2021-08-12] MEDS: ALBUTEROL/IPRATROPIUM 3 ML NEB RESP TX SCH ×4 (01:04→19:35)
[2021-08-12] MEDS: DOXYCYCLINE HYCLATE INJ 100 MG in SODIUM CHLORIDE 0.9% 100 ML IV SCH ×2 (01:34→20:53)
[2021-08-12 04:56] LABS: Basophils % 0.2 % (0.0-0.8); Eosinophils # 0.3 10*3/uL (0.0-0.87); Eosinophils % 2.2 % (0.00-10.9); Hematocrit 27.1 VOL% (35.7-47.0); Hemoglobin 8.5 GM/DL (12.0-16.0); Immature Granulocytes % 0.6 %; Immature Granulocytes Absolute 0.07 #; Lymphocytes # 1.5 10*3/uL (1.4-4.0); Lymphocytes % 13.4 % (21.3-54.2); Mean Corpuscular HGB Conc 31.4 GM/DL (32-36); Mean Corpuscular Volume 92.5 FL (87-102); Mean Platelet Volume 12.5 FL (9.6-12.0); Monocytes # 0.7 10*3/uL (0.11-0.8); Monocytes % 6.2 % (1.7-12.7); Neutrophils % 77.4 % (38.7-73.9); Platelet Count 155 T/CUMM (130-400); Red Blood Count 2.93 MC/CUMM (3.8-5.5); Red Cell Distribution Width 13.7 % (9.3-17.3); White Blood Count 11.2 T/CUMM (4-12)
[2021-08-12 05:12] LABS: Calcium 8.4 MG/DL (8.5-10.1); Osmolality,Calculated 284.2 MOS/KG (273-304); Potassium 3.5 MMOL/L (3.5-5.1)
[2021-08-12] MEDS: ASPIRIN EC 81 MG TABLET PO SCH (09:30)
[2021-08-12] MEDS: PANTOPRAZOLE 40 MG TABLET PO SCH (09:30)
[2021-08-12] MEDS: HEPARIN 5,000 UNIT/1 ML VIAL SUBCUT SCH ×2 (09:30→21:02)
[2021-08-12] MEDS: MULTIVITAMIN (BEROCCA) TABLET PO SCH (09:30)
[2021-08-12] MEDS: NEBIVOLOL 10 MG TABLET PO SCH (09:30)
[2021-08-12] MEDS: INSULIN LISPRO 100 UNIT/ML SUBCUT SCH ×4 (09:30→20:56)
[2021-08-12] MEDS: FAMOTIDINE 20 MG TABLET PO SCH ×2 (09:31→21:00)
[2021-08-12] MEDS: amLODIPine 5 MG TABLET PO SCH (09:31)
[2021-08-12] MEDS: ESCITALOPRAM 10 MG TABLET PO SCH (09:31)
[2021-08-12] MEDS: SUCROFERRIC OXYHYDROXIDE 500 MG PO SCH ×3 (09:43→21:00)
[2021-08-12] MEDS ORDERED: HEPARIN 10,000 UNIT/10 ML VIAL IV PRN (11:40)
[2021-08-12] MEDS: cefTRIAXone 1,000 MG in SODIUM CHLORIDE 0.9% 100 ML IV SCH (15:02)
[2021-08-12] MEDS: SIMVASTATIN 10 MG TABLET PO SCH (20:54)
[2021-08-12] MEDS: FERROUS SULFATE 325 MG TABLET PO SCH (20:55)
[2021-08-13] MEDS: ALBUTEROL/IPRATROPIUM 3 ML NEB RESP TX SCH ×4 (00:30→19:10)
[2021-08-13] MEDS: ONDANSETRON 4 MG/2 ML VIAL IV PRN (02:54)
[2021-08-13 04:44] LABS: Basophils % 0.3 % (0.0-0.8); Eosinophils # 0.2 10*3/uL (0.0-0.87); Eosinophils % 2.1 % (0.00-10.9); Hematocrit 28.3 VOL% (35.7-47.0); Hemoglobin 8.8 GM/DL (12.0-16.0); Immature Granulocytes % 0.9 %; Immature Granulocytes Absolute 0.09 #; Lymphocytes # 1.3 10*3/uL (1.4-4.0); Lymphocytes % 13.1 % (21.3-54.2); Mean Corpuscular HGB Conc 31.1 GM/DL (32-36); Mean Corpuscular Volume 93.1 FL (87-102); Monocytes # 0.8 10*3/uL (0.11-0.8); Monocytes % 7.9 % (1.7-12.7); Neutrophils % 75.7 % (38.7-73.9); Platelet Count 184 T/CUMM (130-400); Red Blood Count 3.04 MC/CUMM (3.8-5.5); Red Cell Distribution Width 13.9 % (9.3-17.3); White Blood Count 9.8 T/CUMM (4-12)
[2021-08-13] MEDS: NEBIVOLOL 10 MG TABLET PO SCH (09:05)
[2021-08-13] MEDS: FAMOTIDINE 20 MG TABLET PO SCH ×2 (09:05→20:36)
[2021-08-13] MEDS: ESCITALOPRAM 10 MG TABLET PO SCH (09:06)
[2021-08-13] MEDS: amLODIPine 5 MG TABLET PO SCH (09:06)
[2021-08-13] MEDS: MULTIVITAMIN (BEROCCA) TABLET PO SCH (09:06)
[2021-08-13] MEDS: PANTOPRAZOLE 40 MG TABLET PO SCH (09:06)
[2021-08-13] MEDS: ASPIRIN EC 81 MG TABLET PO SCH (09:06)
[2021-08-13] MEDS: HEPARIN 5,000 UNIT/1 ML VIAL SUBCUT SCH ×2 (09:08→20:33)
[2021-08-13] MEDS: INSULIN LISPRO 100 UNIT/ML SUBCUT SCH ×4 (09:08→20:28)
[2021-08-13] MEDS: DOXYCYCLINE HYCLATE INJ 100 MG in SODIUM CHLORIDE 0.9% 100 ML IV SCH ×2 (09:08→20:29)
[2021-08-13] MEDS: SUCROFERRIC OXYHYDROXIDE 500 MG PO SCH ×3 (09:14→23:08)
[2021-08-13] MEDS: cefTRIAXone 1,000 MG in SODIUM CHLORIDE 0.9% 100 ML IV SCH (11:09)
[2021-08-13] MEDS: FERROUS SULFATE 325 MG TABLET PO SCH (20:34)
[2021-08-13] MEDS: SIMVASTATIN 10 MG TABLET PO SCH (20:35)
[2021-08-14] MEDS: ALBUTEROL/IPRATROPIUM 3 ML NEB RESP TX SCH ×4 (00:12→19:54)
[2021-08-14] MEDS: ONDANSETRON 4 MG/2 ML VIAL IV PRN (01:27)
[2021-08-14 04:46] LABS: Basophils % 0.4 % (0.0-0.8); Eosinophils # 0.3 10*3/uL (0.0-0.87); Eosinophils % 3.3 % (0.00-10.9); Hematocrit 30.6 VOL% (35.7-47.0); Hemoglobin 9.6 GM/DL (12.0-16.0); Immature Granulocytes % 1.2 %; Immature Granulocytes Absolute 0.12 #; Lymphocytes # 1.4 10*3/uL (1.4-4.0); Lymphocytes % 14.4 % (21.3-54.2); Mean Corpuscular HGB Conc 31.4 GM/DL (32-36); Mean Corpuscular Volume 93.3 FL (87-102); Mean Platelet Volume 11.2 FL (9.6-12.0); Monocytes # 0.8 10*3/uL (0.11-0.8); Monocytes % 7.8 % (1.7-12.7); Neutrophils % 72.9 % (38.7-73.9); Platelet Count 195 T/CUMM (130-400); Red Blood Count 3.28 MC/CUMM (3.8-5.5); Red Cell Distribution Width 13.8 % (9.3-17.3); White Blood Count 9.8 T/CUMM (4-12)
[2021-08-14 05:12] LABS: Albumin 2.9 G/DL (3.4-5.0); Bilirubin,Total 0.4 MG/DL (0.20-1.00); Calcium 9.2 MG/DL (8.5-10.1); Phosphorous 2.5 MG/DL (2.5-4.9); Potassium 3.8 MMOL/L (3.5-5.1); Total Protein 6.7 G/DL (6.4-8.2); Uric Acid 4.4 MG/DL (2.6-6.0)
[2021-08-14] MEDS: SUCROFERRIC OXYHYDROXIDE 500 MG PO SCH ×3 (10:00→21:49)
[2021-08-14] MEDS: INSULIN LISPRO 100 UNIT/ML SUBCUT SCH ×4 (10:02→21:47)
[2021-08-14] MEDS: ASPIRIN EC 81 MG TABLET PO SCH (10:03)
[2021-08-14] MEDS: FAMOTIDINE 20 MG TABLET PO SCH ×2 (10:03→21:45)
[2021-08-14] MEDS: ESCITALOPRAM 10 MG TABLET PO SCH (10:04)
[2021-08-14] MEDS: MULTIVITAMIN (BEROCCA) TABLET PO SCH (10:04)
[2021-08-14] MEDS: PANTOPRAZOLE 40 MG TABLET PO SCH (10:06)
[2021-08-14] MEDS: NEBIVOLOL 10 MG TABLET PO SCH (10:06)
[2021-08-14] MEDS: amLODIPine 5 MG TABLET PO SCH (10:06)
[2021-08-14] MEDS: DOXYCYCLINE HYCLATE 100 MG CAPSULE PO SCH ×2 (10:11→21:43)
[2021-08-14] MEDS: HEPARIN 5,000 UNIT/1 ML VIAL SUBCUT SCH ×2 (10:11→21:48)
[2021-08-14] MEDS: cefTRIAXone 1,000 MG in SODIUM CHLORIDE 0.9% 100 ML IV SCH (15:34)
[2021-08-14] MEDS: SIMVASTATIN 10 MG TABLET PO SCH (21:45)
[2021-08-14] MEDS: FERROUS SULFATE 325 MG TABLET PO SCH (21:47)
[2021-08-15] MEDS: ALBUTEROL/IPRATROPIUM 3 ML NEB RESP TX SCH ×3 (00:05→14:27)
[2021-08-15] MEDS: INSULIN LISPRO 100 UNIT/ML SUBCUT SCH ×2 (09:01→12:22)
[2021-08-15] MEDS: MULTIVITAMIN (BEROCCA) TABLET PO SCH (09:01)
[2021-08-15] MEDS: amLODIPine 5 MG TABLET PO SCH (09:01)
[2021-08-15] MEDS: ASPIRIN EC 81 MG TABLET PO SCH (09:01)
[2021-08-15] MEDS: DOXYCYCLINE HYCLATE 100 MG CAPSULE PO SCH (09:01)
[2021-08-15] MEDS: NEBIVOLOL 10 MG TABLET PO SCH (09:01)
[2021-08-15] MEDS: PANTOPRAZOLE 40 MG TABLET PO SCH (09:02)
[2021-08-15] MEDS: ESCITALOPRAM 10 MG TABLET PO SCH (09:02)
[2021-08-15] MEDS: HEPARIN 5,000 UNIT/1 ML VIAL SUBCUT SCH (09:03)
[2021-08-15] MEDS: FAMOTIDINE 20 MG TABLET PO SCH (09:03)
[2021-08-15] MEDS: SUCROFERRIC OXYHYDROXIDE 500 MG PO SCH (09:30)
[2021-08-15] MEDS: cefTRIAXone 1,000 MG in SODIUM CHLORIDE 0.9% 100 ML IV SCH (10:35)
[2021-08-15 16:44] VITALS: BP 144/57
== END 2021-08-15 17:09 | disposition home health service (06) | DRG 193 ==
LOC: N.ED 18:37 → N.5E 21:45
PROVIDERS: ADMIT Internal Medicine Geriatric Medicine; ATTEND Internal Medicine Geriatric Medicine

== ENCOUNTER 2021-09-29 18:16 | Inpatient (IN) ==
[2021-09-29] MEDS ORDERED: VANCOMYCIN INJ 750 MG in SODIUM CHLORIDE 0.9% 250 ML IV STA (19:31)
[2021-09-29 19:36] LABS: Basophils % 0.2 % (0.0-0.8); Eosinophils # 0.1 10*3/uL (0.0-0.87); Eosinophils % 0.7 % (0.00-10.9); Hematocrit 27.3 VOL% (35.7-47.0); Hemoglobin 8.6 GM/DL (12.0-16.0); Immature Granulocytes % 0.7 %; Immature Granulocytes Absolute 0.13 #; Lymphocytes % 5.6 % (21.3-54.2); Mean Corpuscular HGB Conc 31.5 GM/DL (32-36); Mean Corpuscular Volume 90.7 FL (87-102); Mean Platelet Volume 11.4 FL (9.6-12.0); Monocytes # 0.9 10*3/uL (0.11-0.8); Monocytes % 4.9 % (1.7-12.7); Neutrophils % 87.9 % (38.7-73.9); Platelet Count 161 T/CUMM (130-400); Red Blood Count 3.01 MC/CUMM (3.8-5.5); Red Cell Distribution Width 14.8 % (9.3-17.3); White Blood Count 17.9 T/CUMM (4-12)
[2021-09-29 19:43] LABS: INR 1.1; PT Patient Result 12.5 SECS (10.1-12.1)
[2021-09-29 19:57] LABS: Albumin 2.8 G/DL (3.4-5.0); Bilirubin,Total 0.4 MG/DL (0.20-1.00); Calcium 8.7 MG/DL (8.5-10.1); Osmolality,Calculated 282.1 MOS/KG (273-304); Potassium 2.9 MMOL/L (3.5-5.1); Total Protein 6.1 G/DL (6.4-8.2)
[2021-09-29 20:37] LABS: Bacteria,Urine Occasional /HPF (Few); Mucus,Urine Occasional /LPF (Occasional); RBC,Urine <1 /HPF (0-4); Squamous Epithelial Cell,Urine Occasional /HPF (0-10)
[2021-09-29] MEDS ORDERED: GLUCAGON 1 MG VIAL IM PRN (20:38)
[2021-09-29] MEDS ORDERED: SIMETHICONE CHEW 125 MG TABLET PO PRN (20:38)
[2021-09-29] MEDS ORDERED: ACETAMINOPHEN 325 MG TABLET PO PRN (20:38)
[2021-09-29] MEDS ORDERED: hydrALAZINE 20 MG/1 ML VIAL IV PRN (20:38)
[2021-09-29] MEDS ORDERED: ONDANSETRON 4 MG/2 ML VIAL IV PRN (20:38)
[2021-09-29 20:39] LABS: Bilirubin,Urine Negative (Negative); Blood, Urine Small mg/dL (Negative); Glucose,Urine (UA) 100 mg/dL (Negative); Ketones,Urine Negative (Negative); Nitrite,Urine Negative (Negative); Protein,Urine >=300 mg/dL (Negative); Urine Appearance Clear (Clear); Urine Color Yellow (Yellow); Urine Specific Gravity 1.015 (1.001-1.035); Urine Urobilinogen 0.2 eU/dL (<2.0); Urine pH 6.5 (4.5-8.0)
[2021-09-29] MEDS ORDERED: VANCOMYCIN INJ 750 MG in SODIUM CHLORIDE 0.9% 250 ML IV SCH (21:00)
[2021-09-29] MEDS ORDERED: DEXTROSE 10% 250 ML BAG IV PRN (21:09)
[2021-09-29] MEDS ORDERED: POTASSIUM BICARB EFFERVESCENT 20 MEQ TAB.EFF PO ONE (21:21)
[2021-09-29] MEDS ORDERED: VANCOMYCIN INJ 500 MG in SODIUM CHLORIDE 0.9% 100 ML IV STA (21:33)
[2021-09-29] MEDS ORDERED: VANCOMYCIN INJ 250 MG in SODIUM CHLORIDE 0.9% 100 ML IV PRN (21:34)
[2021-09-29] MEDS: DOCUSATE SODIUM 100 MG CAPSULE PO SCH (22:20)
[2021-09-29] MEDS: NEBIVOLOL 10 MG TABLET PO SCH (22:20)
[2021-09-29] MEDS: FERROUS SULFATE 325 MG TABLET PO SCH (22:20)
[2021-09-29] MEDS: INSULIN REGULAR 100 UNIT/ML SUBCUT SCH (22:20)
[2021-09-29] MEDS: HEPARIN 5,000 UNIT/1 ML VIAL SUBCUT SCH (22:20)
[2021-09-29] MEDS: SIMVASTATIN 10 MG TABLET PO SCH (22:21)
[2021-09-30] MEDS: methIMAzole 5 MG TABLET PO SCH ×3 (00:09→21:11)
[2021-09-30] MEDS: SUCROFERRIC OXYHYDROXIDE 500 MG PO SCH ×4 (00:12→21:18)
[2021-09-30] MEDS: INSULIN ASPART PROTAMINE/ASPART 70/30 100 UNIT/ML SUBCUT SCH ×2 (00:17→22:45)
[2021-09-30 06:03] LABS: Basophils % 0.2 % (0.0-0.8); Eosinophils # 0.2 10*3/uL (0.0-0.87); Eosinophils % 1.3 % (0.00-10.9); Hematocrit 26.4 VOL% (35.7-47.0); Hemoglobin 8.2 GM/DL (12.0-16.0); Immature Granulocytes % 0.5 %; Immature Granulocytes Absolute 0.06 #; Lymphocytes # 1.5 10*3/uL (1.4-4.0); Lymphocytes % 11.8 % (21.3-54.2); Mean Corpuscular HGB Conc 31.1 GM/DL (32-36); Mean Corpuscular Volume 91.7 FL (87-102); Mean Platelet Volume 12.1 FL (9.6-12.0); Monocytes # 0.5 10*3/uL (0.11-0.8); Monocytes % 3.9 % (1.7-12.7); Neutrophils % 82.3 % (38.7-73.9); Platelet Count 145 T/CUMM (130-400); Red Blood Count 2.88 MC/CUMM (3.8-5.5); Red Cell Distribution Width 14.8 % (9.3-17.3); White Blood Count 12.7 T/CUMM (4-12)
[2021-09-30 06:12] LABS: INR 1.2; PT Patient Result 13.1 SECS (10.1-12.1)
[2021-09-30 06:19] LABS: Calcium 8.1 MG/DL (8.5-10.1); Osmolality,Calculated 291.5 MOS/KG (273-304); Potassium 3.3 MMOL/L (3.5-5.1)
[2021-09-30] MEDS: INSULIN REGULAR 100 UNIT/ML SUBCUT SCH ×4 (08:46→21:22)
[2021-09-30] MEDS ORDERED: NON-FORMULARY MEDICATION (B-Complex With Vitamin C Tablet) PO SCH (09:00)
[2021-09-30] MEDS ORDERED: BUPIVACAINE MPF 0.25% 10 ML VIAL ONE (10:27)
[2021-09-30] MEDS ORDERED: LIDOCAINE 1%/EPI INJ 20 ML VIAL ONE (10:27)
[2021-09-30] MEDS ORDERED: propofoL 200 MG/20 ML VIAL IV ONE (10:35)
[2021-09-30] MEDS ORDERED: LIDOCAINE 2% 5 ML VIAL ONE (10:35)
[2021-09-30] MEDS ORDERED: SODIUM CHLORIDE 0.9% 250 ML IV SCH (11:00)
[2021-09-30] MEDS ORDERED: LIDOCAINE/PRILOCAINE CREAM 5 GM TUBE TOP SCH (12:17)
[2021-09-30] MEDS: ESCITALOPRAM 10 MG TABLET PO SCH (12:37)
[2021-09-30] MEDS: DOCUSATE SODIUM 100 MG CAPSULE PO SCH ×2 (12:37→21:11)
[2021-09-30] MEDS: amLODIPine 5 MG TABLET PO SCH (12:38)
[2021-09-30] MEDS: OMEGA 3 ACID ETHYL ESTERS 1 GM CAPSULE PO SCH ×2 (12:38→21:11)
[2021-09-30] MEDS: PANTOPRAZOLE 40 MG TABLET PO SCH (12:38)
[2021-09-30] MEDS: ASPIRIN EC 81 MG TABLET PO SCH (12:38)
[2021-09-30] MEDS: HEPARIN 5,000 UNIT/1 ML VIAL SUBCUT SCH ×2 (13:04→21:11)
[2021-09-30] MEDS ORDERED: VANCOMYCIN INJ 750 MG in SODIUM CHLORIDE 0.9% 250 ML IV SCH (21:00)
[2021-09-30] MEDS: SIMVASTATIN 10 MG TABLET PO SCH (21:11)
[2021-09-30] MEDS: NEBIVOLOL 10 MG TABLET PO SCH (21:11)
[2021-09-30] MEDS: FERROUS SULFATE 325 MG TABLET PO SCH (21:11)
[2021-09-30] MEDS ORDERED: MELATONIN 3 MG TABLET PO PRN (22:03)
[2021-10-01 06:54] LABS: Basophils % 0.4 % (0.0-0.8); Eosinophils # 0.1 10*3/uL (0.0-0.87); Eosinophils % 1.5 % (0.00-10.9); Hematocrit 27.8 VOL% (35.7-47.0); Hemoglobin 8.6 GM/DL (12.0-16.0); Immature Granulocytes % 0.4 %; Immature Granulocytes Absolute 0.03 #; Lymphocytes % 14.1 % (21.3-54.2); Mean Corpuscular HGB Conc 30.9 GM/DL (32-36); Mean Corpuscular Volume 90.8 FL (87-102); Mean Platelet Volume 11.7 FL (9.6-12.0); Monocytes # 0.6 10*3/uL (0.11-0.8); Monocytes % 7.8 % (1.7-12.7); Neutrophils % 75.8 % (38.7-73.9); Platelet Count 171 T/CUMM (130-400); Red Blood Count 3.06 MC/CUMM (3.8-5.5); Red Cell Distribution Width 14.8 % (9.3-17.3); White Blood Count 7.3 T/CUMM (4-12)
[2021-10-01 07:15] LABS: Calcium 8.2 MG/DL (8.5-10.1); Osmolality,Calculated 285.4 MOS/KG (273-304); Potassium 3.5 MMOL/L (3.5-5.1)
[2021-10-01] MEDS: INSULIN REGULAR 100 UNIT/ML SUBCUT SCH ×4 (08:06→21:19)
[2021-10-01] MEDS: amLODIPine 5 MG TABLET PO SCH (11:47)
[2021-10-01] MEDS: DOCUSATE SODIUM 100 MG CAPSULE PO SCH ×2 (11:47→21:20)
[2021-10-01] MEDS: HEPARIN 5,000 UNIT/1 ML VIAL SUBCUT SCH ×2 (11:47→21:22)
[2021-10-01] MEDS: SUCROFERRIC OXYHYDROXIDE 500 MG PO SCH ×3 (11:47→21:44)
[2021-10-01] MEDS: OMEGA 3 ACID ETHYL ESTERS 1 GM CAPSULE PO SCH ×2 (11:48→21:20)
[2021-10-01] MEDS: INSULIN ASPART PROTAMINE/ASPART 70/30 100 UNIT/ML SUBCUT SCH ×3 (14:03→16:31)
[2021-10-01] MEDS: PANTOPRAZOLE 40 MG TABLET PO SCH (14:32)
[2021-10-01] MEDS: methIMAzole 5 MG TABLET PO SCH ×2 (14:32→21:21)
[2021-10-01] MEDS: ASPIRIN EC 81 MG TABLET PO SCH (14:32)
[2021-10-01] MEDS: MULTIVITAMIN (BEROCCA) TABLET PO SCH (14:32)
[2021-10-01] MEDS: ESCITALOPRAM 10 MG TABLET PO SCH (14:33)
[2021-10-01] MEDS: FERROUS SULFATE 325 MG TABLET PO SCH (21:21)
[2021-10-01] MEDS: NEBIVOLOL 10 MG TABLET PO SCH (21:21)
[2021-10-01] MEDS: SIMVASTATIN 10 MG TABLET PO SCH (21:21)
[2021-10-02] MEDS: ESCITALOPRAM 10 MG TABLET PO SCH (08:46)
[2021-10-02] MEDS: OMEGA 3 ACID ETHYL ESTERS 1 GM CAPSULE PO SCH (08:46)
[2021-10-02] MEDS: PANTOPRAZOLE 40 MG TABLET PO SCH (08:46)
[2021-10-02] MEDS: DOCUSATE SODIUM 100 MG CAPSULE PO SCH (08:46)
[2021-10-02] MEDS: methIMAzole 5 MG TABLET PO SCH (08:46)
[2021-10-02] MEDS: amLODIPine 5 MG TABLET PO SCH (08:46)
[2021-10-02] MEDS: ASPIRIN EC 81 MG TABLET PO SCH (08:46)
[2021-10-02] MEDS: MULTIVITAMIN (BEROCCA) TABLET PO SCH (08:47)
[2021-10-02] MEDS: HEPARIN 5,000 UNIT/1 ML VIAL SUBCUT SCH (08:49)
[2021-10-02] MEDS: SUCROFERRIC OXYHYDROXIDE 500 MG PO SCH (09:59)
[2021-10-02] MEDS: INSULIN ASPART PROTAMINE/ASPART 70/30 100 UNIT/ML SUBCUT SCH (10:30)
[2021-10-02] MEDS: INSULIN REGULAR 100 UNIT/ML SUBCUT SCH ×2 (10:30→12:40)
[2021-10-02 13:05] VITALS: BP 137/65
== END 2021-10-02 02:55 | disposition home or self-care (01) | DRG 314 ==
LOC: EDBD → EDUNIT# → N.EDINP 18:16 → N.ED 18:16 → N.5E 21:55
PROVIDERS: ADMIT Emergency Medicine; ATTEND Emergency Medicine